=== PATIENT | male | born 1990 | race Caucasian/White ===

== ENCOUNTER 2020-03-20 09:14 | Emergency (ER) | payer SELFPAY ==
[~2020-03-20] VITALS: Ht 170.2 cm; Wt 63.5 kg
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
--- NOTE | 2020-03-20 09:49 | NUR ---
[facility] AT BEDSIDE.
[2020-03-20] MEDS ORDERED: ONDANSETRON 4 MG TAB.RAPDIS ONE (09:52)
--- NOTE | 2020-03-20 09:56 | NUR ---
LIS#[id number] at bedside to speak with patient
[2020-03-20] MEDS: ONDANSETRON 4 MG TAB.RAPDIS SL ONE (09:58)
--- NOTE | 2020-03-20 10:09 | NUR ---
Patient given written and verbal discharge instructions. Patient verbalizes understanding of instructions. Patient is ambulatory with steady gait. Refuses offer of [facility] placement. Patient given list of available shelters in surrounding area.
[2020-03-20 10:11] VITALS: BP 140/98
== END 2020-03-20 10:15 | disposition home or self-care (01) ==
LOC: ER 09:16
DX: S05.12XA Contusion of eyeball and orbital tissues, left eye, initial encounter (principal); R51 Headache; J45.909 Unspecified asthma, uncomplicated; Z59.0 Homelessness; Y08.89XA Assault by other specified means, initial encounter; Y93.89 Activity, other specified; Y92.89 Other specified places as the place of occurrence of the external cause; Y99.8 Other external cause status
CPT/HCPCS: 99283; Q0162